=== PATIENT | male | born 1965 | race Two or more races ===

== ENCOUNTER → 2023-10-28 07:54 | Outpatient (REF) | payer OTHER, SELFPAY | LOC: RAD 07:54 | PROVIDERS: ATTENDING PHYSICIAN Family Medicine | DX: M54.2 Cervicalgia (principal); M54.50 Low back pain, unspecified | CPT/HCPCS: 72050; 72110 ==

== ENCOUNTER → 2024-07-31 16:46 | Outpatient (REF) | payer OTHER, SELFPAY | LOC: RAD 16:46 | PROVIDERS: ATTENDING PHYSICIAN Physician Assistant Medical; FAMILY PHYSICIAN Family Medicine | DX: R10.13 Epigastric pain (principal); R10.11 Right upper quadrant pain; Z87.19 Personal history of other diseases of the digestive system | CPT/HCPCS: 76700 ==